=== PATIENT | male | born 1995 | race Caucasian/White ===

== ENCOUNTER → 2021-11-05 13:45 | Outpatient (CLI) | payer MEDICARE, MEDICAID, SELFPAY ==
--- NOTE | ~2021-11-05 | US_ITS ---
EXAMINATION: US right upper quadrant DATE: 11/05/2021 14:04 INDICATION: Abnormal liver function tests. TECHNIQUE: Multiple grayscale and Doppler ultrasound images of the abdomen were obtained. COMPARISON: CT abdomen and pelvis 04/18/2019 FINDINGS: The pancreas is not well visualized. There is diffuse hepatic steatosis. No liver surface n odularity. The gallbladder is absent. The common duct is normal and measures 4 mm. There is normal fl ow in main portal vein. IMPRESSION: 1. Diffuse hepatic steatosis. Reviewed, dictated and finalized at location A.
== END ==
DX: R74.8 Abnormal levels of other serum enzymes (principal); K76.0 Fatty (change of) liver, not elsewhere classified
CPT/HCPCS: 76705